=== PATIENT | female | born 1995 | race Caucasian/White ===

== ENCOUNTER 2017-01-29 14:25 | Outpatient (CLI) | payer MEDICAID ==
--- NOTE | 2017-01-30 21:33 | ER ---
ADMIT: 01/29/2017 RM/LOC: [address] [facility] MR#: [id number] [address] [id number] [place] [address] [place] [address] Emergency Room Report SEX: F AGE: 21 : 1995 DATE: 01/29/2017 CHIEF COMPLAINT: Rectal pain. FINDINGS: She has thrombosed hemorrhoid. I did an incision and drain, please see procedure note for that full procedure. CLINICAL IMPRESSION: Thrombosed hemorrhoid. ANJALI Raphael / Vito Vidal MD / lady JOB #: [id number] CC: Lorrie Obrien MD, Attending Physician Carlos Jo, Family Physician
== END 2017-01-29 16:50 | disposition home or self-care (01) ==
LOC: 2LDRP 14:25 → BC 14:25 → 2LDRP 16:50
DX: O99.89 Other specified diseases and conditions complicating pregnancy, childbirth and the puerperium (principal); K62.89 Other specified diseases of anus and rectum; Z3A.38 38 weeks gestation of pregnancy